=== PATIENT | female | born 1955 | race Caucasian/White ===

== ENCOUNTER 2016-10-19 14:42 | Emergency (ER) | payer BC ==
--- OUTSIDE RECORDS SUMMARY | 2016-10-19 15:06 | XMS REPORT | Continuity of Care Document ---
:1955 Author Organization [facility] [address] Care Team Providers Name Role Phone Raffy Marion Primary Care Provider [phone] Source Comments This disclosure is being made pursuant to the GCW program and maynot contain all information available regarding this patient.[facility] Active Allergies and Adverse Reactions No Known Allergies Current Medications Be aware that medications may not be up to date as of this document. Alwaysverify current medications with the patient. Prescription Sig. Disp. Refills Start Date End Date Status metFORMIN Take 850 mg Active (GLUCOPHAGE) 850 MG by mouth 2 tablet (two) times daily with meals. insulin aspart Inject 15 Active (NOVOLOG) 100 UNIT/ML Units into injection - vial the skin. With noon meal Lancets MISC Test 1 x Active daily for dx: DMII insulin glargine Inject 100 Active (TOUJEO) 300 UNIT/ML Units into injection the skin nightly. glucose blood test 4 each by Active strip Other route 4 (four) times daily. Use as instructed, One Touch Ultra strips, dx: DMII ferrous sulfate 325 TAKE TWO 60 tablet 3 06/26/2016 Active (65 FE) MG tablet TABLETS BY MOUTH ONCE DAILY cyclobenzaprine Take 1 tablet 30 tablet 0 08/10/2016 Active (FLEXERIL) 10 MG by mouth 3 tablet (three) times daily as needed for Muscle spasms. meloxicam (MOBIC) 7.5 Take 1 tablet 30 tablet 2 08/10/2016 Active MG tablet by mouth daily. atorvastatin TAKE ONE 30 tablet 5 09/04/2016 Active (LIPITOR) 40 MG TABLET BY tablet MOUTH ONCE DAILY furosemide (LASIX) 80 Take 1 tablet 30 tablet 2 09/10/2016 Active MG tablet by mouth daily. enalapril (VASOTEC) Take 1 tablet 30 tablet 2 09/10/2016 Active 20 MG tablet by mouth daily. atenolol (TENORMIN) Take 1 tablet 30 tablet 2 09/10/2016 Active 25 MG tablet by mouth daily. oxybutynin Take 1 tablet 30 tablet 2 10/19/2016 Active (DITROPAN-XL) 10 MG by mouth 24 hr tablet daily. oxybutynin TAKE ONE 30 tablet 0 09/19/2016 Discontinued (DITROPAN-XL) 10 MG TABLET BY 7 24 hr tablet MOUTH ONCE DAILY Active Problems Problem Noted Date Type 2 diabetes mellitus (HCC) 05/16/2016 Hyperlipidemia 05/16/2016 Hypertension 05/16/2016 Resolved Problems Problem Noted Date Resolved Date Urinary incontinence 05/16/2016 06/11/2016 Breast cancer (HCC) 05/16/2016 06/11/2016 Glaucoma 05/16/2016 06/11/2016 Overview: [id number] right eye Most Recent Encounters Date Type Specialty Providers Description 10/19/2016 Refill Orthopedic Surgery Allie Barrientos, RMA 10/19/2016 Refill Orthopedic Surgery Allie Barrientos, RMA 10/19/2016 Refill Family Medicine CovertCosmea Melanie, RMA 09/19/2016 Refill Family Medicine Raffy Marion MD 09/10/2016 Office Visit Family Raffy Kuo, Controlled type 2 MD diabetes mellitus without complication, with long-term current use of insulin ([facility]) (Primary Dx); Essential hypertension; Mixed hyperlipidemia 09/04/2016 Refill Family Medicine Raffy Marion MD 08/10/2016 Office Visit Family Raffy Kuo, Acute midline low back MD pain without sciatica (Primary Dx) Social History Tobacco Use Types Packs/Day Years Used Date Never Smoker Alcohol Use Drinks/Week oz/Week Comments No Last Filed Vital Signs Vital Sign Reading Time Taken Blood Pressure 132/74 09/10/2016 8:36 AM CDT Pulse 76 09/10/2016 8:36 AM CDT Temperature 36.9 C (98.4 F) 09/10/2016 8:36 AM CDT Respiratory Rate 16 09/10/2016 8:36 AM CDT Height 1.651 m (5' 5") 09/10/2016 8:36 AM CDT Weight 130.636 kg (288 lb) 09/10/2016 8:36 AM CDT Body Mass Index 47.93 09/10/2016 8:36 AM CDT Oxygen Saturation 97% 09/10/2016 8:36 AM CDT Plan of Care Patient Goal Type Goal Blood Pressure Blood Pressure below 140/90 Result Component HEMOGLOBIN A1C < 7.0 Date Type Specialty Providers Description 12/10/2016 Appointment Family Medicine Quentin Mcginnis MD [address] [address] [phone] (Fax) Health Maintenance Due Date Last Done Comments Foot Exam 12/10/1963 Lab-Urine Microalbumin 12/10/1963 Hepatitis C Screening 12/10/1971 Pneumococcal Medium Risk 19-64 yo (1 of 1 1972 - PPSV23) Tetanus/Pertussis (1 - Tdap) 1972 Pap Smear 1974 Well Adult Visit 12/10/2003 Zoster Vaccine 60+ 2013 Eye (Ophthalmology) Exam 11/07/2015 11/06/2014 Influenza Immunization (#1) 2015 LAB-HgA1C 03/13/2017 09/10/2016, 06/11/2016 Lab-Lipids 09/10/2017 09/10/2016, 06/11/2016 Mammogram 05/28/2018 05/28/2016 Colonoscopy 2024 2014 Results from Last 3 Months Hemoglobin A1c (09/10/2016 8:31 AM) Component Value Range Hemoglobin A1C 6.7Comment: % Nondiabetic Patient:4.0 - 6.0 % Diabetic Patient: < 7.0 % Clinical correlation is essential Estimated Avg Glucose 146 mg/dL Narrative Testing performed at [facility], [address] [place] [address].Ring Sorter Faheem Shah MD Lipid panel (09/10/2016 8:31 AM) Component Value Range Cholesterol 137Comment:Cholesterol preferred <200 mg/dL. 0-200 mg/dL Clinical correlation is essential. Triglycerides 182 0-200 mg/dL HDL Cholesterol 29(L)Comment:Low HDL cholesterol, (Major Risk >60 mg/dL Factor for CHD) LDL Calculated 71.6Comment: mg/dL <100Optimal 100-129 Near Optimal/Above Optimal 130-159 Borderline High 160-189 High >mc=495Dutn High Cholesterol/HDL Ratio 4.7Comment:HDL:Chol ratio Average Risk 1:4.4-1:7.0, Clinical Correlation essential. Narrative Testing performed at [facility], [address] [place] [address].Ring Sorter Faheem Shah MD Comprehensive metabolic panel (09/10/2016 8:31 AM) Component Value Range Glucose 110(H)Comment: 60-100 mg/dL Fasting Plasma Glucose (FPG)<100 MG/DL Impaired Fasting Glucose (IFG) 100-125 MG/DL Provisional Diagnosis of Diabetes Mellitus > cw=201 MG/DL (Diagnosis Must Be Confirmed) BUN, Blood 12 10-20 mg/dL Creatinine 0.8 0.6-1.2 mg/dL Glomerular Filtration Rate 77(L) >80 mL/min/1.73mm2 Estimate Glomerlular Filtration Rate 90Comment:The estimated GFR has >80 mL/min/ 1.73mm2 Estimate- not been validated for women or patients with serious comorbid conditions, or with extremes of body size, muscle mass, or nutritional status. Calcium 9.6 8.4-10.2 mg/dL Sodium 142 136-145 mmol/L Potassium 3.1(L) 3.5-4.6 mmol/L Chloride 101 99-111 mmol/L CO2 28.8 21.0-32.0 mmol/L Albumin 3.7 3.5-5.0 g/dL Total Protein 7.1 6.1-8.0 g/dL Bilirubin Total 0.7 0.2-1.2 mg/dL Alkaline Phosphatase 68 40-150 U/L AST 11 5-34 U/L ALT 10 0-55 u/L Narrative Testing performed at [facility], [address] [place] [address].Ring Sorter Faheem Shah MD CBC auto differential (09/10/2016 8:31 AM) Component Value Range WBC 8.9 3.1-11.0 x10^3/uL RBC 5.28(H) 4.00-5.10 x10^6/uL Hemoglobin 14.3 12.5-15.3 g/dL Hematocrit 43.6 33.7-46.0 % MCV 82.6 82.0-98.0 fL MCH 27.1(L) 27.2-33.3 pg MCHC 32.8 32.0-36.0 g/dL RDW 14.2 11.5-14.7 % SD-RDW 42.2 36.5-50.0 fL Platelets 375 150-450 x10^3/uL MPV 10.7 9.1-12.1 fL NE% 61.6 42.0-76.0 % %LYMPH 28.9 13.5-48.0 % %MONO 7.1 3.5-14.0 % % Eosinophils 1.2 0.0-7.0 % % Basophils 0.8 0.0-1.5 % Imm Gran Relative 0.4 0.0-1.0 % NE# 5.5 1.2-7.3 x10^3/uL Lymphs # 2.6 0.7-3.5 x10^3/uL [place]# 0.6 0.2-0.9 x10^3/uL Eosinophil # 0.1 0.0-0.5 x10^3/uL Baso# 0.1 0.0-0.1 x10^3/uL Imm Gran Absolute 0.04 0.00-0.10 x10^3/uL NRBC % 0.00 0.00-0.10 /100 WBC Specimen BLOOD Narrative Testing performed at [facility], [address] [place] [address].Ring Sorter Faheem Shah MD Insurance Payer Benefit Plan / Subscriber ID Type Phone Address Group [employer] OF [id number] [phone] [address] [facility] [place], [place] [id number]
[2016-10-19 15:22] VITALS: BP 144/75
--- NOTE | 2016-10-19 15:53 | ERNOTE ---
Integumentary HPI - Narrative Date of Service: 10/19/16 - General Presenting Symptoms: rash Time Seen by Provider: 10/19/16 14:56 - Immun/Allergies/Home Medications Immunizations: IMMUNIZATION HX Immunizations Up to Date Yes History of Influenza Vaccine Yes Allergies/Adverse Reactions: Allergies Allergy/AdvReac Type Severity Reaction Status Date / Time No Known Allergies Allergy Verified 10/19/16 14:52 Home Medications: HOME MEDICATIONS Atenolol [Tenormin] 25 mg PO DAILY 11/22/14 [Last Taken Unknown] Calcium Carbonate/Vitamin D3 [Caltrate 600 + D Soft Chew Tab] 1 each PO BID 07/04 [Last Taken Unknown] Enalapril Maleate [Vasotec] 20 mg PO DAILY 11/22/14 [Last Taken Unknown] Ferrous Sulfate [Iron] 325 mg PO DAILY 11/22/14 [Last Taken Unknown] Furosemide [Lasix] 80 mg PO DAILY 11/22/14 [Last Taken Unknown] Lovastatin [Altoprev] 20 mg PO DAILY 11/22/14 [Last Taken Unknown] Mv-Min/Iron/Folic/Calcium/Vitk [One-A-Day Women's Tablet] 1 each PO DAILY [Last Taken Unknown] Oxybutynin Chloride [Ditropan Xl] 10 mg PO DAILY 11/22/14 [Last Taken Unknown] metFORMIN HCL [Glucophage] 500 mg PO BIDWM 11/22/14 [Last Taken Unknown] Insulin Glargine,Hum.rec.anlog [Buzz Solnaveen] 300 unit SQ DAILY 10/19/16 [ Last Taken Unknown] Triamcinolone Acetonide 15 gm TP TID #30 gm 10/19/16 [Last Taken Unknown] - History of Present Illness Narrative: 60 y/o female ambulatory to the ED for a rash on her left flank area that appeared a week ago. She believes that she may have poison yazan. She has tried cortisone 10 cream without improvement. She denies any recent illnesses, but reports having to go see her PCP about pain in her left side. She reports the rash not being painful, but her side hurts and she is unable to lay on it at night. She was giving a muscle relaxant but it did not seem to help. She reports having chicken pox as a child. She also reports having shingles several years ago, but reports that it was on both of her arms. Location: Reports: torso Quality: Reports: itching Exposure: Reports: no cause identified Associated Symptoms: Reports: rash. Denies: blisters, swelling/mass/lumps, fever, malaise, paresthesia, numbness Review of Systems - Review of Systems Constitutional: Absent: fever, chills EYE: Present: no symptoms reported ENT: Present: no symptoms reported Respiratory: Absent: shortness of breath, cough Cardiology: Absent: chest pain, palpitations Gastrointestinal/Abdominal: Absent: nausea, vomiting, abdominal pain, eating less, drinking less Genitourinary: Present: no symptoms reported Musculoskeletal: Present: muscle pain. Absent: muscle stiffness Skin: Present: rash. Absent: change in color Neurological: Absent: headache, dizziness/light-headedness Endocrine: Present: no symptoms reported Hematologic/Lymphatic: Present: no symptoms reported Psych: Present: no symptoms reported - Patient's Past Medical History Patient History - Medical: Anemia, Arthritis, Diabetes Type 2, GERD, Headache Patient History - Cardiac/Respiratory: Hypertension, Hyperlipidemia Patient History - Cancer: Breast Patient History - Surgical Procedures: Colonoscopy, Hysterectomy, T & A Patient History - Other: None - Social History Living Situations: home Abuse History: No History of abuse Psych History: No pertinent hx Smoking Status: Never smoker Alcohol Use: none Drug Use: none - Immunizations Immunizations Up to Date: Yes History of Influenza Vaccine: Yes Physical Exam - Physical Exam General Appearance: Present: wd/wn, alert, no apparent distress, obese Neck: Present: normal inspection, nontender, supple, full range of motion Respiratory: Present: no respiratory distress, normal breath sounds, no accessory muscle use, lungs clear Cardiovascular/Chest: Present: regular rate, rhythm, no murmur, normal peripheral pulses Extremity Exam: Present: normal inspection, normal range of motion Neurological Exam: Present: alert, oriented, normal mood/affect, no motor/ sensory deficits Skin Exam: Present: normal color, warm/dry, skin rash - papular eruption present on left flank with a few vesicles - extends anteriorly to left upper abdominal quadrant ED Progress - Vital Signs Patient's Vital Signs:: I have reviewed the patient's vital signs. Vital Signs: Vital Signs 10/19/16 14:47 Temperature 36.0 C L Pulse Rate 85 Respiratory 16 Rate Blood Pressure 126/66 O2 Sat by Pulse 95 Oximetry - Progress/Reassessment Chief Complaint: Rash Progress:: Unchanged Plan - Plan Plan: Antiviral treatment deferred since rash appeared a week ago. Patient agreeable to trying a stronger steroid cream. Rx for triamcinolone cream given. Departure Clinical Impression: Shingles Qualifiers: Herpes zoster complications: without complications Qualified Code(s): B02.9 - Zoster without complications - Departure Disposition: Home Follow Up Needed Condition: Good Instructions: Shingles, [id number] Additional Instructions: Can try Gold Moe Maximum Relief Itch Cream in between doses of steroid cream for itching Cold compresses may also help Continue your routine medications Prescriptions: Triamcinolone Acetonide 15 gm TP TID #30 gm
== END 2016-10-19 15:23 | disposition home or self-care (01) ==
LOC: ER 14:42
DX: B02.9 Zoster without complications (principal); E11.9 Type 2 diabetes mellitus without complications; I10 Essential (primary) hypertension